=== PATIENT | female | born 1960 | race Caucasian/White ===

== ENCOUNTER 2021-08-19 12:36 | Emergency (ER) | payer OTHER ==
[2021-08-19] MEDS ORDERED: AUGMENTIN 875-1 EACH PO (14:15)
== END 2021-08-19 15:37 | disposition home or self-care (01) ==
LOC: ER 12:36
DX: S01.511A Laceration without foreign body of lip, initial encounter (principal); Z88.5 Allergy status to narcotic agent; Z88.6 Allergy status to analgesic agent; Z88.8 Allergy status to other drugs, medicaments and biological substances; W01.198A Fall on same level from slipping, tripping and stumbling with subsequent striking against other object, initial encounter; Y93.89 Activity, other specified; Y92.89 Other specified places as the place of occurrence of the external cause; Y99.8 Other external cause status